=== PATIENT | male | born 2000 | race Caucasian/White ===

== ENCOUNTER 2020-12-13 13:31 | Emergency (ER) | payer BC, SELFPAY ==
[2020-12-13 13:45] VITALS: BP 118/66; PULSE 69; RESP 20; TEMP 37.2; O2SAT 100
--- NOTE | 2020-12-13 14:11 | ED.MALEGU ---
HPI - Male Genitourinary General Chief complaint: Urogenital-Male Stated complaint: Possible UTI Time Seen by Provider: 12/13/20 14:00 Source: patient Mode of arrival: ambulatory Limitations: no limitations History of Present Illness HPI Narrative: Rick Guerrero is a 20-year-old male with a history of urinary tract infection and kidney stones who comes to [facility] complaining of lower abdominal pressure and difficulty with urination. He denies hesitancy are interruption of stream are discharge at the end of stream but says he is having constant pressure for the last few days. Asked if he had unprotected sexual contact he has had oral sex with an partner but denies any insertive sexual activity Related Data Allergies Allergy/AdvReac Type Severity Reaction Status Date / Time clarithromycin [From Biaxin] Allergy Hives Verified 12/13/20 13:56 Review of Systems Review of Systems: CONSTITUTIONAL: Denies fever, chills, sweats. EYES: Denies visual changes, redness, discharge. ENT: Denies rhinorrhea, congestion, sore throat, otalgia. CARDIOVASCULAR: Denies chest pain, palpitations, edema. RESPIRATORY: Denies dyspnea, wheezing, cough GASTROINTESTINAL: Denies abdominal pain, nausea, vomiting, diarrhea. GENITOURINARY: Has dysuria, hematuria, abnormal discharge SKIN: Denies rash or itching. NEUROLOGIC: Denies numbness, or focal weakness. PSYCHIATRIC: Denies anxiety or depression. [facility] Past Medical History Medical History Bacterial UTI Calculi, ureter Social History Social History (Updated 12/13/20 @ 14:14 by Lesia Moss CNP) Smoking status: Never smoker Alcohol intake: current Comments At time of signature, I agree with nursing past medical, surgical, social and family history. There is no relevant family history pertinent to the presenting complaint. Exam Narrative: GENERAL: This is a well-nourished, well-developed patient, in mild distress. HEAD: normocephalic, atraumatic. EYES: Sclera clear/white. Vision is grossly intact. EARS: External ears normal, Hearing grossly intact. NOSE: External nose normal without nasal discharge, nares without redness, no rhinorrhea. THROAT: Mucous membranes moist, NECK: Neck supple, CARDIOVASCULAR: Regular rate and rhythm without murmurs, gallops, or rubs. RESPIRATORY: Clear to auscultation. Breath sounds equal bilaterally. No wheezes, rales, or rhonchi. GASTROINTESTINAL: Abdomen soft, states has pressure in his lower abdomen when he is urinating, pain free of 10 but denies sexual contact SKIN: warm, intact with no suspicious lesions or rash, good texture and turgor. NEURO: awake, alert, and oriented to person, place and time. There were no obvious focal neurologic abnormalities. Steady gait EXTREMITIES: Normal range of motion. BACK: Nontender without deformity Course Course Emergency Course: Patient has dysuria and pressure in his lower abdomen with a history of UTI and stones, denies sexual contact STD treatment deferred based on his history and questioning about sexual activity denies there is any chance for contact with body fluids or insertive sex Zithromax given here; cipro sent to pharmacy. follow up with PCP. if not Improve, he should return for further treatment Vital Signs Vital signs: Vital Signs Temperature 99 F 12/13/20 13:45 Pulse Rate 69 12/13/20 13:45 Respiratory Rate 20 12/13/20 13:45 Blood Pressure 118/66 12/13/20 13:45 Pulse Oximetry 100 12/13/20 13:45 Temperature 99 F 12/13/20 13:45 Pulse Rate 69 12/13/20 13:45 Respiratory Rate 20 12/13/20 13:45 Blood Pressure 118/66 12/13/20 13:45 Pulse Oximetry 100 12/13/20 13:45 MDM - Male Genitourinary Differential Diagnosis Differential diagnosis: Likely urinary tract infection, urethritis, prostatitis and other Lab Data Labs: Lab Results 12/13/20 Range/Units 13:48 C.trachomatis RNA (TMA) Pendi
== END 2020-12-13 14:30 | disposition home or self-care (01) ==
PROVIDERS: Emergency Provider Nurse Practitioner
DX: R30.0 Dysuria (principal)
CPT/HCPCS: 81003; 87491; 87591; 87661; 99213; A9270; G0463

== ENCOUNTER 2024-12-14 10:48 | Emergency (ER) | payer BC, SELFPAY ==
--- NOTE | ~2024-12-14 | XR_ITS ---
Clinical history:Lateral elbow pain EXAM:X-ray of the right minimum 3 views TECHNIQUE:4 images of the right elbow were obtained. Comparisons:None available FINDINGS: Bone mineralization is within normal limits. No displaced fracture. No dislocation. Soft tissue swelling about the right elbow. Elbow joint effusion. No significant degenerative change. No sclerotic or destructive bone lesions. IMPRESSION: 1. No fracture identified. 2. Right elbow joint effusion. An occult fracture is possible if there is a history of recent trauma. If of concern, consider a CT or MRI of the right elbow for further assessment. Reviewed, dictated and finalized at location Q. IMPRESSION: 1. No fracture identified. 2. Right elbow joint effusion. An occult fracture is possible if there is a his tory of recent trauma. If of concern, consider a CT or MRI of the right elbow f or further assessment.
--- OUTSIDE RECORDS SUMMARY | 2024-12-14 10:51 | XMS_ITS | Clinical Summary ---
Author Organization [facility] Address [address] [place] [address] Care Team Providers Care Agricultural Equipment Mechanic Name Role Phone Ra Herring MD Primary Care Provider [phone] Allergies Active Allergy Reactions Criticality Noted Date Comments Amoxicillin-Pot Clavulanate Penicillins Medications albuterol (PROVENTIL,VENT HARINI) 2.5 mg /3 mL (0.083 %) nebulizer solution USE ONE VIAL IN NEBULIZER EVERY 3 TO 6 HOURS NEEDED 180 vial 0 6 Active sertraline (ZOLOFT) 25 mg tablet TAKE 1 TABLET DAILY 60 tablet 5 5 Active lisdexamfetamin e (VYVANSE) 50 mg capsule Take 1 capsule (50 mg total) by mouth every morning 30 capsule 5 Active Active Problems Problem Noted Date Diagnosed Date Attention deficit hyperactiv ity disorder (ADHD), predominantly inattentive type 01/27/2023 Assessment & Plan (06/07/2024 3:22 PM DRAFTER TOPOGRAPHICAL): Stable, generally well controlled, patient reports able to concentrate, keep up with school work No loss of appetite or significant insomnia Continue Vyvanse 50 mg daily Assessment & Plan (12/01/2023 3:43 PM CDT): Stable, well controlled; patient reports good relief of symptoms with current dose of medications; no significant side effects Continue Vyvanse 50 mg daily Assessment & Plan (10/06/2023 3:36 PM CDT): Stable, not fully controlled; patient reports he continues to have some symptoms, no major side effects from medication at current dose Increase Vyvanse to 50 mg daily on next refill Assessment & Plan (08/25/2023 2:52 PM CDT): Stable, well controlled with current medications; no major side effects Continue Vyvanse 40 mg daily Assessment & Plan (05/04/2023 1:49 PM DRAFTER TOPOGRAPHICAL): Stable, well controlled; patient reports good relief of symptoms with Vyvanse 30 mg daily; however patient reports that medication runs out in afternoon making it difficult to complete homework Will increase Vyvanse to 40 mg daily; reassess in approximately 2-3 months for response to therapy and ensure no significant side effects at that time Assessment & Plan (01/27/2023 4:51 PM CDT): Patient has multiple symptoms consistent with ADHD; patient reports symptoms have been present for extended duration, prior to college rarely impacted function ability to maintain grades While in more intense college program; now having more anxiety, stress related to difficulty with completing assignments in learning during flexors Will start Vyvanse 30 mg daily; reassess at future; evaluate if patient would benefit from transition to [facility] during winter break FORTINO (generalized anxiety disorder) 04/13/2022 Assessment & Plan (06/07/2024 3:22 PM DRAFTER TOPOGRAPHICAL): Stable, well controlled; no major side effects from medication Patient reports anxiety is generally well controlled Continue sertraline 25 mg daily Assessment & Plan (12/01/2023 3:43 PM CDT): Stable, well controlled; patient reports no significant anxiety, well controlled with medication no significant side effects Continue sertraline 25 mg Assessment & Plan (10/06/2023 3:35 PM CDT): Stable, well controlled; patient reports improved symptom relief with current medication, no significant side effects Continue sertraline 25 mg daily Assessment & Plan (08/25/2023 2:52 PM CDT): Not well controlled, has significant anxiety; social as well as generalized No current relief with bupropion Will decrease bupropion 150 mg daily then discontinue after 2 weeks Start sertraline 25 mg daily; continue to taper up as needed Assessment & Plan (05/04/2023 1:49 PM DRAFTER TOPOGRAPHICAL): Stable, generally well controlled; patient reports good response to medication Continue bupropion 300 mg daily Improved management of ADHD may also be helping with GED Assessment & Plan (01/27/2023 4:51 PM CDT): Not well controlled, patient reports significant anxiety; most related to stressors related to poor concentration, difficulty with focusing and organizing complex and multiple task Continue bupropion 450 mg daily, start Vyvanse 30 mg to see if treatment of ADHD can help improve symptoms Assessment & Plan (06/16/2022 2:51 PM DRAFTER TOPOGRAPHICAL): Not well controlled, patient reports he continues to have symptoms; no significant changes with current medication No significant side effects with medication Increase bupropion to 300 mg daily; re-evaluate in 4-6 weeks; if no improvement, then consider changing medication Assessment & Plan (04/13/2022 1:16 PM DRAFTER TOPOGRAPHICAL): Patient reports he has been over thinking things, imagines worse things to happen Symptoms are impacting social activities, has poor sleep getting only 4-5 hours per night Patient reports difficulty talking in class focusing for long duration Patient may also have underlying ADD as part of symptoms given patient reports poor concentration and focus in grade in high school Given possible ADD diagnosis, will start bupropion 150 mg daily, follow-up in 4- 8 weeks for response to therapy Asthma 06/10/2016 Overview (07/30/2016): Asthma Assessment & Plan (04/13/2022 1:15 PM DRAFTER TOPOGRAPHICAL): Stable, well controlled; uses QVAR p.r.n. Assessment & Plan (01/25/2022 5:05 PM CDT): Stable, well controlled; patient reports rare use of medications Uses QVAR p.r.n. Continue to use QVAR p.r.n., albuterol p.r.n. for exacerbation Otitis media 06/10/2016 Overview (07/30/2016): Otitis media Infectious warts 02/24/2016 Overview (07/30/2016): Wart Ulnar neuritis 04/04/2015 Encounters Date Type Department Care Team Description 2024 Telephone [facility] [address] [address] Ra Herring MD 10/10/2024 [facility]phone [facility] [address] [address] Ra Herring MD Med Refill from Last 3 Months Immunizations Immunization Administration Dates Next Due DTaP 12/03/2003,06/03/2000 DTaP / HiB / IPV 03/03/2001,03/29/2000, 0 Hep B, Adolescent or Pediatric 1,06/03/2000,01/28/2000,11/27 Hib (PRP-OMP) 06/03/2000 IPV 12/03/2003 Influenza, Quadrivalent, Spl it, Intramuscular 05/02/2018,02/04/2016 Influenza, Quadrivalent, Spl it, Preservative Free, Intramuscular 03/16/2023,01/25/2022,02/24/2021,01/21,02/28/2019 Influenza, Split 01/29/2013 Influenza, Trivalent, Cell Culture-based MDCK, Preservative Free, Antibiotic Free, Intramuscular 03/19/2024 Influenza, Trivalent, IM (MDV) 01/31/2015,2013 Influenza, Trivalent, Preser vative Free, Intramuscular 02/18/2017 Influenza, Unspecified 01/27/2023(Deferr ed: Patient Refused),01/23/2022 MMR 12/03/2003,03/03/2001 Meningococcal B, OMV (Bexsero) 04/13/2022 Meningococcal MCV4P (Menactra) 02/04/2016,2010 Pneumococcal Conjugate PCV 13 07/07/2001 ,09/02/2000,06/03/2000,03/29 Tdap 04/13/2022,12/04/2010 Varicella 11/30/2013,2000 Surgical History Surgery Date Site/Laterality Comments TYMPANOSTOMY TUBE PLACEMENT 04/25/2001 - 04/24/2002 N/A KIDNEY STONE SURGERY 04/25/2019 - 04/24/2020 N/A Medical History Medical History Date Comments Asthma Asthma Kidney stone Anxiety Family History Medical History Relation Name Comments Diabetes Father Tez Coleman Hypertension Father Tez Coleman Heart attack Maternal Grandfather Armen Jensen No Known Problems Mother Heart attack Paternal Grandfather Tez Coleman Hearing loss Paternal Grandmother Dean Cesar Relation Name Status Comments Father Tez Coleman Alive Maternal Grandfather Armen Jensen Mother Alive Paternal Grandfather Tez Coleman Paternal Grandmother Dean Cesar Social History Tobacco Use Types Packs/Day Years Used Date Smoking Tobacco: Never Cigarettes Smokeless Tobacco: Never Tobacco Cessation:Counseling Given: Not Answered Alcohol Use Standard Drinks/Week Comments No 0 (1 standard drink = 0.6 oz pur e alcohol) [facility] Utilities Answer Date Recorded In the past 12 months has [facility] [employer], gas, oil, or water [employer] [employer] threatened to shut off services in your home? No 05/04/2023 Humiliation, Afraid, Rape, and Kick questionnair e Answer Date Recorded Within the last year, have y ou been afraid of your partner or ex-partner? No 05/04/2023 Within the last year, have y ou been humiliated or emotionally abused in other ways by your partner or ex-partner? No Within the last year, have y ou been kicked, hit, slapped, or otherwise physically hurt by your partner or ex-partner? No 05/04/2023 Within the last year, have y ou been raped or forced to have any kind of sexual activity by your partner or ex-partner? No 05/04/2023 Social Connection and Isolation Panel Answer Date Recorded In a typical week, how many times do you talk on the phone with family, friends, or neighbors? More than three times a week 05/04/2023 How often do you get togethe r with friends or relatives? More than three times a week 05/04/2023 How often do you attend chur ch or nondenominational services? Never 05/04/2023 Do you belong to any clubs o r organizations such as zoroastrianism groups, unions, fraternal or athletic groups, or school groups? Yes 05/04/2023 How often do you attend meet ings of the clubs or organizations you belong to? More than 4 times per year 05/04/2023 Are you , , di vorced, , never , or living with a partner? Never 05/04/2023 AUDIT-C Answer Date Recorded Q1: How often do you have a drink containing alc ohol? Monthly or less 05/04/2023 Q2: How many drinks containi ng alcohol do you have on a typical day when you are drinking? 1 or 2 05/04/2023 Q3: How often do you have si x or more drinks on one occasion? Never 05/04/2023 Overall Financial Resource Strain (CARDIA) Answe r Date Recorded How hard is it for you to pa y for the very basics like food, housing, medical care, and heating? Not hard at all 05/04/2023 PHQ-2 Answer Date Recorded PHQ-2 Total Score (If total score is 3 or more points, staff should administer the PHQ-9) 0 08/25/2023 [facility] - Occupational Stress Questionnaire Answer Date Recorded Do you feel stress - tense, restless, nervous, or anxious, or unable to sleep at night because your mind is troubled all the time - these days? To some extent 05/04/2023 Exercise Vital Sign Answer Date Recorde d On average, how many days pe r week do you engage in moderate to strenuous exercise (like a brisk walk)? 7 days 05/04/2023 On average, how many minutes do you engage in exercise at this level? 60 min 05/04/2023 Hunger Vital Sign Answer Date Recorded Within the past 12 months, y ou worried that your food would run out before you got the money to buy more. Never true 05/04/19 24 Within the past 12 months, t he food you bought just didn't last and you didn't have money to get more. Never true 05/04/2023 PRAPARE - Transportation Answer Date Re corded In the past 12 months, has l ack of transportation kept you from medical appointments or from getting medications? No 04/25 In the past 12 months, has l ack of transportation kept you from meetings, work, or from getting things needed for daily living? No 05/04/2023 Housing Stability Vital Sign Answer Hayes e Recorded In the last 12 months, was t here a time when you were not able to pay the mortgage or rent on time? No 05/04/2023 In the last 12 months, how many places have you lived? 1 05/04/2023 In the last 12 months, was t here a time when you did not have a steady place to sleep or slept in a half-way (including now)? No 05/04/2023 Sex and Gender Information Value Date Recorded Sex Assigned at Not on file Legal Sex Male 5:55 AM DRAFTER TOPOGRAPHICAL Gender Identity Not on file Sexual Orientation Not on file Obstetrics History Last Filed Vital Signs Vital Sign Reading Time Taken Comments Blood Pressure 100/70 06/07/2024 2:34 PM DRAFTER TOPOGRAPHICAL Pulse 106 06/07/2024 2:34 PM DRAFTER TOPOGRAPHICAL Temperature 36.6 C (97.8 F) 06/07/2024 2:34 PM DRAFTER TOPOGRAPHICAL Respiratory Rate 20 06/07/2024 2:34 PM DRAFTER TOPOGRAPHICAL Oxygen Saturation 99% 06/07/2024 2:34 PM DRAFTER TOPOGRAPHICAL Inhaled Oxygen Concentration - - Weight 56.7 kg (125 lb) 06/07/2024 2:34 PM DRAFTER TOPOGRAPHICAL Height 170.2 cm (5' 7) 06/07/2024 2:34 PM DRAFTER TOPOGRAPHICAL Body Mass Index 19.58 06/07/2024 2:34 PM DRAFTER TOPOGRAPHICAL Plan of Treatment Health Maintenance Due Date Last Done Comments Hepatitis C Screening 1999 Pneumococcal vaccine <65 (1 of 1 - PPSV23, PCV20, or PCV21) 11/27/2005 07/07/2001, 09/02/2000, 06/03/2000, Additional history exists HPV Vaccines (1 - Male 3-dos e series) 11/27/2014 Regular Well Visit/Exam 18-64 01/25/2023 01/25/2022 Covid-19 Vaccine (3 - 2023-2 5 season) 2023 01/14/2021, 12/25/2020 Depression Screening 08/24/2024 08/25/2023, 05/04/2023, 05/04/2023, Additional history exists Influenza Vaccine (#1) 2024 , 03/16/2023, 01/25/2022, Additional history exists DTaP/Tdap/Td Vaccine (8 - Td or Tdap) 04/13/2032 04/13/2022, 12/04/2010, 12/03/2003, Additional history exists Hepatitis B Screening Completed 03/03/2001 , 06/03/2000, 01/28/2000, Additional history exists Varicella Vaccines Completed 11/30/2013, 2000 Medical Devices Explanted Type Area Office Machine Mechanic Device Identifier Shelf Expiration Date Model / Serial / Lot [employer] [id number] Universa 6fr 24cm Radiopaque Positioner Staffing Coordinator Braid Tether - [id number] Implanted:Qty: 1 on 10/14/2018 by Reji Quesada MD at [facility] Explanted:Qty: 1 on 10/16/2018 Left: [employer] 07/21/2021 [id number] / / [id number] Description:String left on a nd taped to penis with mastisol/[place] [address] [facility] ACCESS [employer] [facility] [place] [address] [employer] ACCESS [facility] [place] [address] [employer] ACCESS Advance Directives For more information, please contact: [phone] * Full Code (Latest Code Status on File) Date Activated Date Inactivated Comments 10/14/2018 10:11 AM 10/14/2018 9:26 PM Care Teams Agricultural Equipment Mechanic Relationship Specialty Start Date End Date Ra Herring MD [address] [place] [address] PCP - General Family Medicine 01/25/22
--- OUTSIDE RECORDS SUMMARY | 2024-12-14 10:51 | XMS_ITS | Clinical Summary ---
Author Organization [facility] Address [address] [place] [address] Phone Care Team Providers Care Shop Cooper Name Role Phone Provider, Unknown Primary Care Provider Unavaila ble Social History Tobacco Use Types Packs/Day Years Used Date Smoking Tobacco: Never Assessed Sex and Gender Information Value Date Recorded Sex Assigned at Not on file Legal Sex Male 9:59 PM CDT Gender Identity Not on file Sexual Orientation Not on file Plan of Treatment Not on file Care Teams Shop Cooper Relationship Specialty Start Date End Date Provider, Unknown UNKNOWN PCP - General 06/20/22
--- OUTSIDE RECORDS SUMMARY | 2024-12-14 10:51 | XMS_ITS | Encounter Summary ---
Author Organization [facility] Address [address] [place] [address] Phone Care Team Providers Care Radio Sportscaster Name Role Phone Provider, Unknown Primary Care Provider Unavaila ble Encounter Details Date Type Department Care Team (Late st Contact Info) Description 06/25/2022 Lab Requisition [facility] [address] [place] [address] Alina Beavers, KNOCKUP WORKER, FERRYBOAT OPERATOR HELPER [address] [place], [place] [id number] Alcohol dependence, uncomplicated (HCC); Cannabis dependence, uncomplicated (HCC); Other specified anxiety disorders Social History Tobacco Use Types Packs/Day Years Used Date Smoking Tobacco: Never Assessed Sex and Gender Information Value Date Recorded Sex Assigned at Not on file Legal Sex Male 9:59 PM CDT Gender Identity Not on file Sexual Orientation Not on file documented as of this encounter Plan of Treatment Not on file documented as of this encounter Visit Diagnoses Diagnosis Alcohol dependence, uncomplicated (HCC) Cannabis dependence, uncomplicated (HCC) Cannabis dependence, unspecified Other specified anxiety disorders documented in this encounter Care Teams Radio Sportscaster Relationship Specialty Start Date End Date Provider, Unknown UNKNOWN PCP - General 06/20/22 documented as of this encounter
[2024-12-14 10:54] VITALS: BP 128/71; PULSE 92; RESP 16; TEMP 36.9; O2SAT 100
--- NOTE | 2024-12-14 11:01 | ED.UPPEXIN ---
HPI - Extremity Injury (Upper) General Chief Complaint: Extremity Injury, Upper Stated Complaint: Right Elbow Injury Time Seen by Provider: 12/14/24 11:00 Source: patient Mode of arrival: ambulatory Limitations: no limitations History of Present Illness HPI narrative: Rick is a 24-year-old male patient presenting to the clinic today with complaints of right elbow pain x1 day. He reports that he slid into a base while playing baseball and injured his right elbow. 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 Having pain to the lateral/medial elbow-pain radiates down the arm. Denies any shoulder pain or neck pain. Related Data Home Medications ?Medication ?Instructions ?Recorded ?Confirmed ?Last Taken ?Type lisdexamfetamine 50 mg capsule mg 12/14/24 Unknown History sertraline 25 mg tablet mg 12/14/24 Unknown History Allergies Allergy/AdvReac Type Severity Reaction Status Date / Time amoxicillin Allergy Unknown Rash Verified 12/14/24 10:50 clavulanic acid Allergy Unknown Rash Verified 12/14/24 10:50 clarithromycin (From Biaxin) Allergy Hives Verified 12/14/24 10:50 Review of Systems Review of Systems: Pertinent positives per HPI. Patient denies any fever, chills, rash, headache, visual changes, dizziness, cough, runny nose, sore throat, shortness of breath, chest pain, palpitations, nausea, vomiting, diarrhea, constipation, abdominal pain, or any urinary issues. [facility] Past Medical History Medical History Bacterial UTI Calculi, ureter Social History Social History Smoking status: Never smoker Alcohol intake: current Comments At the time of my signature, I reviewed and agree with the nursing past medical, surgical, social, and family history. There is no relevant family history pertinent to the patient complaint. Exam Narrative: General: Well-developed, well nourished, in no apparent distress Head: Normocephalic, atraumatic. Cardio: Regular rate and rhythm, s1 and s2 normal, no murmur appreciated. Resp: Clear to auscultation bilaterally, no rhonchi, rales, wheezing or rubs. 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 Level of Care: Express Care Visit Vital Signs Vital signs: Vital Signs Temperature 36.9 C 12/14/24 10:54 Pulse Rate 92 12/14/24 10:54 Respiratory Rate 16 12/14/24 10:54 Blood Pressure 128/71 12/14/24 10:54 Pulse Oximetry 100 12/14/24 10:54 Oxygen Delivery Room Air 12/14/24 10:54 Temperature 36.9 C 12/14/24 10:54 Pulse Rate 92 12/14/24 10:54 Respiratory Rate 16 12/14/24 10:54 Blood Pressure 128/71 12/14/24 10:54 Pulse Oximetry 100 12/14/24 10:54 Oxygen Delivery Room Air 12/14/24 10:54 Vital signs reviewed MDM - Extremity Injury (Upper) MDM Narrative Medical decision making narrative: At the time of visit patient is resting comfortably on the exam table. Patient appears to be nontoxic. Complaints of right elbow pain x1 day. He reports that he slid into a base while playing baseball and injured his right elbow. 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 Having pain to the lateral/medial elbow-pain radiates down the arm. Denies any shoulder pain or neck pain. On exam patient is having tenderness to palpation over the medial lateral epicondyle of the right elbow, unable to fully extend the right elbow due to pain, pain radiating down into the right hand, Elbow x-ray was ordered. Diagnostics: Elbow x-ray was performed and was negative for any acute fracture or malalignment but does show a joint effusion. Recommend CT or MRI if symptoms persist. Plan: I suspect patient has right elbow pain with joint effusion. Recommend follow-up with PCP or orthopedic provider for further evaluation to determine if he needs a CT or MRI. Rest, ice, elevate. Pio wrap and arm sling was given. Sensation, circulation, and motion within normal limits after application of the Pio wrap. Supportive measures were discussed with the patient and they voiced understanding discharge instructions and agrees to treatment plan. Return precautions reviewed Differential Diagnosis Differential diagnosis: Likely fracture of humerus and other (Fracture of radius, elbow strain, elbow contusion, soft tissue injury, lateral epicondylitis, medial epicondylitis) Imaging Data Radiologist's impression: ITS Impressions Elbow X-Ray 12/14/24 11:21 IMPRESSION: 1. No fracture identified. 2. Right elbow joint effusion. An occult fracture is possible if there is a history of recent trauma. If of concern, consider a CT or MRI of the right elbow for further assessment. Discharge Plan Discharge Clinical Impression: Elbow pain, right Effusion of elbow Qualifiers: Laterality: right Qualified Code(s): M25.421 - Effusion, right elbow Patient Disposition: Home Condition: Stable Instructions: Antibiotic Form, Elbow Sprain (ED), Swollen Joint (ED) Additional Instructions: Rest, ice, elevate, wear pio wrap, and arm sling as directed Tylenol/motrin for pain as discussed. No PE or sports until healed. Follow up with your PCP if symptoms persist more than 1 week. Follow up with Dr. Serna- orthopaedic provider- call office to schedule an appointment Patient Language: Romanian Prescriptions: No Action sertraline 25 mg tablet lisdexamfetamine 50 mg capsule Follow-up/Referrals: Nima,MD Ra [Primary Care Provider, Unknown] Stand Alone Forms: Work/School Release IP Time of Disposition: 11:40 Quality NIHSS Nursing Documentation ED NIHSS nursing documentation: reviewed/agree
--- NOTE | 2024-12-14 11:10 | PC.NURSE ---
PT DECLINED ICE FOR COMFORT
== END 2024-12-14 11:51 | disposition home or self-care (01) ==
PROVIDERS: Emergency Provider Nurse Practitioner Family; PCP Hospitalist
DX: M25.421 Effusion, right elbow (principal); Z79.899 Other long term (current) drug therapy; W01.0XXA Fall on same level from slipping, tripping and stumbling without subsequent striking against object, initial encounter; Y93.64 Activity, baseball
CPT/HCPCS: 73080; 99213; A4565; G0463